=== PATIENT | female | born 1940 | race Caucasian/White ===

== ENCOUNTER → 2019-02-24 | Outpatient (CLI) | payer MEDICARE ==
[2015-07-07 15:13] VITALS: BP 138/56
[~2019-02-24] MED LIST: ALLO300T PO; ASPI-630 PO; ESCITALOPRAM OX10 MG PO; FURO40TA4 PO; GABA300C18 PO; GADOTERATE 5 MMOL/10ML VIAL. IVP ONE; GLIM2TAB2 PO; LEVO112T4 PO; LISI-334 PO; LORA10CA PO; METF500T16 PO; METO-239 PO; OMEG300C PO; OXYC1TAB19 PO; SIMV40TA3 PO; VITA1TAB19 PO
--- NOTE | 2019-02-24 15:21 | KCIC ---
MRI Brain with and without contrast History: Dizziness, memory loss Technique: Multiplanar, multi sequential pre and postcontrast MR imaging was performed of the brain. Comparison: None Findings: There is no evidence of recent infarct or cytotoxic edema. Ventricular size is within normal limits. There is mild prominence of the supratentorial subarachnoid spaces not unexpected for patient's age.There is no significant midline shift, intraaxial mass effect, or focal abnormal extra-axial fluid collection. There is scattered overall mild T2 and FLAIR hyperintense abnormality of the supratentorial parenchyma bilaterally, also moderate signal abnormality of the crissy. There is no significant hemosiderin deposition of the brain parenchyma. There is no nodular parenchymal or leptomeningeal enhancement. There is preservation of the major intracranial flow-voids at the skull base. The cerebellar tonsils are normal in location. There is no significant abnormality of the pineal gland or pituitary gland. There is minimal bilateral ethmoid air cell mucosal thickening. There is some deviation of the nasal septum to the left. There has been lens surgery on the left. Mastoid air cells are mostly aerated, negligible patchy thickening. There is preserved marrow signal of the clivus. Impression: 1. There is no abnormal intracranial enhancement or evidence of recent infarct. Minimal T2 and FLAIR hyperintense abnormality of the supratentorial parenchyma and moderate signal abnormality of the crissy is nonspecific, more commonly due to chronic microvascular ischemic disease in a patient this age. Electronically signed by: Jake Wilson MD (02/24/2019 3:18 PM) [id number]
== END | disposition home or self-care (01) ==
LOC: KCIC MRI 11:14
PROVIDERS: ATTEND Family Medicine
DX: I67.82 Cerebral ischemia (principal); J34.2 Deviated nasal septum; J34.89 Other specified disorders of nose and nasal sinuses; I10 Essential (primary) hypertension; Z91.041 Radiographic dye allergy status; Z88.0 Allergy status to penicillin; Z88.5 Allergy status to narcotic agent
CPT/HCPCS: 70553; 82565; A9575